=== PATIENT | male | born 1970 ===

== ENCOUNTER 2016-05-31 09:39 | Emergency (ER) | payer BC, OTHER ==
--- NOTE | 2016-05-31 10:09 | ED Physician Documentation ---
Abdominal Pain - HISTORIAN Historian: patient - HPI Stated Complaint: abd pain Chief Complaint: Abdominal Pain Onset: days ago (yesterdya about 1500) Duration: none Timing: still present Context: denies: out of country travel, bad food Severity: moderate Quality: aching, cramping Associated Symptoms: denies: fever, chills Exacerbated by: nothing Relieved by: nothing Further Comments: yes (Patient has had a total colectomy for ulcerative colitis. Inititally has an ileostomy placed. Patient has had a ileal J-pouch and anastomosis done. since proceduer patient has been having BM about every hour. Last BM was yesterday at 14:30. Has not been passing any flatus. Has become nauseated and has vomited 20+ times since then. Has not been able to keep anything down. Feels that he may be getting dehydrated. 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) Surgeries/Procedures: other (total colectomy, ileostomy reversal with J pouch) Immunizations: UTD Home Medications: Ambulatory Orders Medication Instructions Recorded Prednisone 20 mg PO QDAY #23 each 09/11/15 Tacrolimus [Prograf] 1 mg PO DAILY av 09/11/15 Allergies/Adverse Reactions: Allergies Allergy/AdvReac Type Severity Reaction Status Date / Time No Known Drug Allergies Allergy Verified 05/31/16 11:56 - VITAL SIGNS Vital Signs: Vital Signs Temp Pulse Resp BP Pulse Ox 98.7 F 62 14 130/77 99 05/31/16 09:42 05/31/16 09:42 05/31/16 09:42 05/31/16 09:42 05/31/16 09:42 - REVIEWED ASSESSMENTS Nursing Assessment Reviewed: Yes Vitals Reviewed: Yes ED Results Lab/Radiology - Lab Results Lab Results: Lab Results 05/31/16 05/31/16 05/31/16 11:50 10:45 10:45 WBC 4.90 K/ul K/ul (4.00-12.00) RBC 5.31 M/ul H M/ul (3.90-5.20) Hgb 14.2 g/dL g/dL (12.0-18.0) Hct 45.2 % % (37.0-53.0) MCV 85.0 fl fl (80.0-100.0) MCH 26.8 pg L pg (28.0-34.0) MCHC 31.5 g/dL g/dL (30.0-36.0) RDW 15.0 % H % (11.3-14.3) Plt Count 157 K/mm3 K/mm3 (130-400) Neut % (Auto) 79.7 % H % (39.0-79.0) Lymph % (Auto) 10.4 % L % (16.0-50.0) Sanborn % (Auto) 7.4 % % (0.0-11.0) Eos % (Auto) 0.9 % % (0.0-6.8) Baso % (Auto) 0.3 (0.0-1.5) Neut # 3.9 # k/uL # k/uL (1.4-7.7) Lymph # 0.5 # k/uL L # k/uL (0.6-4.0) Sanborn # 0.4 # k/uL # k/uL (0.0-0.9) Eos # 0.0 # k/uL # k/uL (0.0-0.6) Baso # 0.0 # k/uL # k/uL (0.0-0.5) Reactive Lymphs % 1.2 % % (0.0-5.0) Reactive Lymphs # 0.1 # k/uL # k/uL (0.0-0.8) Sodium 139 mmol/L mmol/L (136-145) Potassium 3.5 mmol/L mmol/L (3.5-5.0) Chloride 93 mmol/L L mmol/L (98-110) Carbon Dioxide 34 mmol/L H mmol/L (20-32) BUN 14 mg/dL mg/dL (10-26) Creatinine 0.9 mg/dL mg/dL (0.4-1.5) Estimated Creat Clear 144 Est GFR ( Amer) > 60 (60 - ) Est GFR (Non-Af Amer) > 60 (60 - ) Glucose 113 mg/dL H mg/dL (70-99) Calcium 9.6 mg/dL mg/dL (8.5-10.5) Total Bilirubin 3.5 mg/dL H mg/dL (0.2-1.2) AST 118 U/L H U/L (0-41) ALT 192 U/L H U/L (0-45) Alkaline Phosphatase 527 U/L H U/L (46-116) Total Protein 7.9 g/dL g/dL (6.0-8.5) Albumin 4.2 g/dL g/dL (3.0-5.5) Amylase 51 U/L U/L (20-104) Urine Color Gabriela (YELLOW) Urine Appearance Clear (CLEAR) Urine pH 6.0 (5.0 - 8.0) Ur Specific Gorman 1.025 (1.010-1.030) Urine Protein 1+ mg/dL H mg/dL (NEGATIVE) Urine Ketones Trace mg/dL mg/dL (NEGATIVE) Urine Occult Blood Trace-intact (NEGATIVE) Urine Nitrite Negative (NEGATIVE) Urine Bilirubin 3+ H (NEGATIVE) Urine Urobilinogen 4.0 Eu H Eu (0.2-1.0) Ur Leukocyte Esterase Negative (NEGATIVE) Urine RBC 2-5 H (0-2 HPF) Urine WBC 2-5 (0-5 HPF) Ur Squamous Epith Cells Few (NEG-FEW) Amorphous Sediment Few H (NEGATIVE) Urine Mucus Present H (NEGATIVE) Urine Glucose Negative mg/dL mg/dL (NEGATIVE) - Orders Orders: ED Orders Category Date Time Status Place Saline Lock/IV Now Care 05/31/16 10:[address] ABD & PELVIS W/O CON Stat Exams 05/31/16 Ordered AMYLASE Routine Lab 05/31/16 10:45 Completed CBC/PLATELET/DIFF Routine Lab 05/31/16 10:45 Completed CMP Routine Lab 05/31/16 10:45 Completed URINALYSIS Routine Lab 05/31/16 11:50 Completed 0.9 % Sodium Chloride [Normal Saline] 1,000 ml Med 05/31/16 10:30 Ordered IV .Q1H 0.9 % Sodium Chloride [Normal Saline] 1,000 ml Med 05/31/16 12:00 Ordered IV .Q1H Ondansetron HCl/Pf [Zofran 4 mg/2 ml] Med 05/31/16 10:14 Discontinued 4 mg IVP NOW ONE Ondansetron HCl/Pf [Zofran 4 mg/2 ml] Med 05/31/16 11:45 Discontinued 4 mg IVP NOW ONE Abdominal Pain Physical Exam - Physical Exam General Appearance: alert, moderate distress EENT: eye inspection normal, ENT inspection normal, no signs of dehydration. No : pharyngeal erythema NECK: normal inspection, thyroid normal, supple RESPIRATORY: no resp distress, chest non-tender, breath sounds normal. No: wheezes, rales CVS: reg rate & rhythm, heart sounds normal, no gallop ABDOMEN: soft, no organomegaly, normal bowel sounds, no distension, tenderness ( all four quadrant area, no guarding or rebound tenderness noted. ). No: rebound BACK: no CVA tenderness SKIN: warm/dry, normal color NEURO: oriented X3, mood/affect nml, cognition normal Vital Signs: Vital Signs Temp Pulse Resp BP Pulse Ox 98.7 F 62 14 130/77 99 05/31/16 09:42 05/31/16 09:42 05/31/16 09:42 05/31/16 09:42 05/31/16 09:42 Discharge Clincal Impression: Small bowel obstruction Referrals: Tera Oconnell MD [Primary Care Provider] - 2 Days Home Medications: Ambulatory Orders Prednisone 20 mg PO QDAY #23 each 09/11/15 Tacrolimus [Prograf] 1 mg PO DAILY av 09/11/15 Condition: Stable Disposition: 02 XFER [facility] HOSP Decision to Admit: NO Date of Decison to Admit: 05/31/16 Decision Time: 13:29
[2016-05-31] MEDS ORDERED: ONDANSETRON HCL/PF 4 MG/ 2ML VIAL IVP ONE ×2 (10:14→11:45)
--- NOTE | 2016-05-31 10:16 | ED Physician Documentation ---
Abdominal Pain - HISTORIAN Historian: patient - HPI Stated Complaint: abd pain Further Comments: yes (Patient had resection of colon cancer with placement of J pouch.) - PAST HX Home Medications: Ambulatory Orders Medication Instructions Recorded Prednisone 20 mg PO QDAY #23 each 09/11/15 Tacrolimus [Prograf] 1 mg PO DAILY av 09/11/15 Allergies/Adverse Reactions: Allergies Allergy/AdvReac Type Severity Reaction Status Date / Time No Known Drug Allergies Allergy Unverified 05/31/16 09:59 - VITAL SIGNS Vital Signs: Vital Signs Temp Pulse Resp BP Pulse Ox 98.7 F 62 14 130/77 99 05/31/16 09:42 05/31/16 09:42 05/31/16 09:42 05/31/16 09:42 05/31/16 09:42 Abdominal Pain Physical Exam - Physical Exam Vital Signs: Vital Signs Temp Pulse Resp BP Pulse Ox 98.7 F 62 14 130/77 99 05/31/16 09:42 05/31/16 09:42 05/31/16 09:42 05/31/16 09:42 05/31/16 09:42 Discharge Home Medications: Ambulatory Orders Prednisone 20 mg PO QDAY #23 each 09/11/15 Tacrolimus [Prograf] 1 mg PO DAILY av 09/11/15
[2016-05-31] MEDS ORDERED: 0.9 % SODIUM CHLORIDE 1,000 ML IV ONE ×2 (10:21→11:45)
[2016-05-31] MEDS ORDERED: 0.9 % SODIUM CHLORIDE 1,000 ML IV SCH ×2 (10:30→12:00)
[2016-05-31 10:52] LABS: BASOPHILS % 0.3 (0.0-1.5); EOSINOPHILS % 0.9 % (0.0-6.8); MEAN CORPUSCULAR HEMOGLOBIN 26.8 pg (28.0-34.0); MONOCYTES % 7.4 % (0.0-11.0); NEUTROPHILS # 3.9 # k/uL (1.4-7.7)
[2016-05-31 11:13] LABS: eGFR (African) > 60; eGFR (Non-African) > 60
[2016-05-31 12:02] LABS: APPEARANCE,URINE Clear (CLEAR); COLOR,URINE Amber (YELLOW); OCCULT BLOOD,URINE Trace-intact (NEGATIVE)
[2016-05-31 12:10] LABS: AMORPHOUS SEDIMENT,UR FEW (NEGATIVE)
--- NOTE | 2016-05-31 13:54 | Diagnostic Imaging Report ---
[facility] [place] [id number] [facility] [place], [place]. [address] Report Submission Date: May 31, 2016 12:18:17 PM CDT Patient Study Name: DOROTHY PRETTY Date: May 31, 2016 11:51:23 AM CDT Modality Type: CT\SR Gender: M Description: CT ABD & PELVIS W/O CO : 66 Institution: [facility] [place] Physician HERB SAMANO - [place] CT of the abdomen and pelvis without contrast CLINICAL HISTORY: Abdominal pain. Nausea and vomiting. TECHNIQUE: CT of the abdomen and pelvis is performed without oral or intravenous administration of contrast. Sagittal and coronal reconstructions are performed by the technologist. FINDINGS: Visualized lung bases are clear. The liver and spleen demonstrate normal attenuation without focal defect. Gallbladder is surgically absent. There is no pancreatic or adrenal abnormality. There is mild gastric wall thickening that is likely related to incomplete distention of the stomach. Kidneys are of normal size, shape and position. There are postoperative changes consistent with previous partial colectomy. There are distended distal small bowel loops extending to the level of an anastomosis in the right lower quadrant. Small bowel feces sign is evident. Mid to distal small bowel is distended consistent with distal small-bowel obstruction. There is no free fluid in the pelvis or abdomen. IMPRESSION: Postop colectomy. Surgical clips in the right lower quadrant with narrowing at the level of the anastomosis and resulting distal small-bowel obstruction. Electronically signed on May 31, 2016 12:18:17 PM CDT by: Ronni BROWER
[2016-05-31] MEDS ORDERED: DEXTROSE 5 %-0.45 % NACL 1,000 ML IV ONE (14:08)
[2016-05-31 14:55] VITALS: BP 119/65
[2016-05-31] MEDS ORDERED: DEXTROSE 5 %-0.45 % NACL 1,000 ML IV SCH (15:00)
== END 2016-05-31 14:50 | disposition short-term general hospital (02) ==
LOC: ED 09:39
DX: K56.69 Other intestinal obstruction (principal)
CPT/HCPCS: 36415; 74176; 80053; 81002; 82150; 85025; 96361; 96374; 99283; 99284; J2405; J7030; S1016; S5010